=== PATIENT | female | born 1985 | race Caucasian/White ===

== ENCOUNTER 2021-08-05 16:14 | Emergency (ER) | payer SELFPAY ==
[2021-08-05 16:15] VITALS: BP 155/102; PULSE 74; RESP 16; TEMP 36.2; O2SAT 98; BMI 32.1
--- NOTE | 2021-08-05 17:37 | ED.RN ---
CALLED FOR PT AT 1707, PT NOT IN DEPT
== END 2021-08-05 17:45 | disposition left against medical advice (07) ==
LOC: ED 17:54
PROVIDERS: PCP Internal Medicine
DX: R10.9 Unspecified abdominal pain (principal); Z53.21 Procedure and treatment not carried out due to patient leaving prior to being seen by health care provider

== ENCOUNTER 2023-08-26 12:30 | Outpatient (RCR) | payer BC, SELFPAY ==
--- NOTE | 2023-08-12 13:58 | HP.SP.EVAL ---
Visit History Visit Info Date of Eval: 08/12/23 Visit: 1 Patient's Approved Number of Visits: 30 Insurance Date Limit: 05/17/24 Library Helper: ROGELIO Paez Attending Doctor: ARTURO Referring Doctor: ARTURO Reason for Referral: VOCAL CORD RX HERE Previous speech therapy: No Other Relevant Medical History/Diagnoses/Surgery: KHLOE OSMAN is a 38 year old female who presents to [facility] Speech Therapy following a dx of Vocal Cord Dysfunction. Pt has been seeing an personal injury attorney for about a year -- it has been determined that she is allergic to cats and dust mites. She moved into a new house about two years ago and the previous class 1 owner operator had cats and carpet. Pt stating that she is still finding cat hair in the carpet however they did have the carpets steam cleaned. Pt stating that at times she feels short of breath and it is like she is breathing through a straw. She does not have a hx of GERD. `She has been taking Jo and an Albuterol inhaler and they do not bring her relief. She states she has noticed increased heart rate and anxiousness with the Jo. Khloe stating she has stopped drinking coffee within the past year because she felt like she didn't have a good response to the caffeine. Pt reporting feeling brain fog during these episodes where she doesn't know what she is doing or losing her train of thought mid statement. Pt stating that she has taken Lion's Red supplement to help with brain fog. Pt stating that over the past two years she has noticed that her symptoms appear to exist between June to January/February where she may experience the SOB every day during this time period. She then notices that between the months of February and May, her symptoms seem to subside. This may be related to her allergies. She does confirm feelings of post nasal drip. Khloe stating that she is an sales executive insurance in sales for [employer] and she is on the phone for 10 hours a day. She notices that talking seems to make her symptoms worse and that exercising does not seem to affect her. She states that the symptoms do not seem to subside unless she sits and is quiet without talking. Khloe has not been to see a integrity consultant. Smoking Status: Never smoker Pain Is pain an issue with your current prescribed condition?: No Personal Preferred language: Yemeni Patient Allergies Allergies Allergies: Allergies No Known Allergies Allergy (Verified 08/05/21 16:17) Subjective Voice Medications Mediations: Jo, Ayan's Red, Vitamin D3, B complex with calcium, Magnesium glycinate Intubation Was the Client intubated: Yes If yes, list date, duration, and explanation: 2008 for a hysterectomy Intake Water (ounces): 36 Coffee (ounces): 0 Tea (ounces): 0 Soda (ounces): 0 Energy drinks (ounces): 0 Other (specify): Crystal Lite occasionally Alcoholic Beverage Intake Intake: Never Objective Voice Observational Assessment Maximum Phonation Time in seconds: 14.33 on average across three trials. S/Z Ratio: 1.6 Sustained /s/: 19 on average across three trials Sustained /z/: 11.66 on average across three trials Greater than 1:4 (indicates dysfunction): Yes Reference: Neuro-QoL instrument Radiation Oncology Patient Other Other Breathing Education: -: - Direct education was provided re: use of diaphragmatic breathing, body mechanics, and goal of implementing this type of breathing throughout her day. Khloe was observed to utilize clavicular breathing at rest and at the start of structured voice related tasks (e.g., sustained phonation). A handout was provided on diaphragmatic breathing. Encouraged Pt to read through the handout at home and stated she could try to implement independently or wait until returning to speech therapy for more direct instruction. - ST also provided a breath introduction to rescue breathing. ST providing example of rescue breathing and direct instruction when Pt attempted. Pt stating that she felt light headed afterwards. A handout was provided on rescue breathing. Encouraged Pt to read through the handout at home and stated she could try to implement independently or wait until returning to speech therapy for more direct instruction. Spirometry: -: - Khloe participated in spirometry at her personal injury attorney's office which was report WNL. See Patient chart for a copy of the data. Plan Plan Plan: Will recommend Pt for skilled outpatient speech therapy to address deficits in vocal function characterized by suspected vocal cord dysfunction. Pt would benefit from training in identifying instances of vocal abuse, providing vocal hygiene solutions, training in diaphragmatic breathing, relaxation techniques, and direct education re: vocal health. Without skilled speech therapy Pt is at risk for pulmonary distress in a variety of social situations. Recommendations Treatment Warranted: Yes Treatment Warranted: Voice Comment: - Participation in evaluation with a Garage Laborer with potential for Pulmonary Function Test to determine presence of VCD and corroborate Pt's symptoms. Progress Prognosis: Good Frequency Frequency: 1x/Week Duration: 6 Weeks Goals that are Established Determination:: Goals will be added/modified as deemed necessary and appropriate. Therapy will be discontinued when results of re-evaluation indicate therapy is no longer needed or lack of progress has been documented. Goal #1-5 Goal #1: Khloe will establish volitional control of respiration evidenced by utilization of diaphragmatic breathing for at least 5 min. in two opportunities in a 30 min. therapy session within 4 weeks independently. Goal #2: Khloe will establish volitional control of respiration evidenced by utilization of rescue breathing in 3 of 3 structured opportunities within 4 weeks independently. Goal #3: Khloe will complete a weekly log dictating instances of vocal cord dysfunction or moments of activities of not breathing including time of day, activity, and stress level on a scale of 1-5 with 1 being mild tension and 5 being complete airway closure. Education Patient has Indicated that the Following Identified Educational Needs: None The Patient has indicated that they have no educational or learning abilities that may effect their care.: Yes Patient Instruction Patient Education: Diagnosis and Treatment Plan Person Taught: Patient Teaching Method: Discussion, Demonstration and Handout Response to teaching: Return demonstration and Verbalize understanding
--- NOTE | 2023-12-22 16:01 | HP.SP.DC_ITS ---
ST Discharge Summary Discharged: Discharge: PILAR OSMAN is a 38 year old female who presented to [facility] on 08/12/23 following a dx of vocal cord dysfunction. Pt attended initial evaluation with goals created to target diaphragmatic breathing, rescue breathing, and keeping a voice log of her po tential vocal cord dysfunction events. After evaluation, Pt attended 1 of 4 scheduled visits and then after last appt follow up visits were not scheduled by Pt. Pt being discharged from speech therapy caseload on this date 12/22/23 d/t Pt absence in attending additional treatment visits. RECOMMENDATION: Also recommended Pt reach out to chicken sexer or PCP and request a referral to see a public weigher for pulmonary function testing or to an ENT to scope and view vocal cords for vocal cord dysfunction. Suspect anxiety may be contributing to symptoms. Thank you for allowing me to participate in the care of your patient. Will reevaluate at Pt?s request following script from physician.
== END 2023-08-26 19:00 | disposition home or self-care (01) ==
LOC: SP 12:30
PROVIDERS: PCP Internal Medicine; Referring Provider Nurse Practitioner; Visit Provider Nurse Practitioner
DX: J38.3 Other diseases of vocal cords (principal)
CPT/HCPCS: 92507; 92524

== ENCOUNTER 2024-07-07 12:31 | Emergency (ER) | payer BC, SELFPAY ==
[2024-07-07 12:33] VITALS: BP 120/70; PULSE 81; RESP 16; TEMP 36.4; O2SAT 98; BMI 31.1
[2024-07-07 13:02] LABS: Absolute Lymphocyte Count 0.84 X10^3/uL (0.83-4.51); Absolute Neutrophil Count 4.5 X10^3/uL (2.0-7.7); Basophil# 0.02 X10^3/uL; Basophil% 0.3 % (0-1); Eosinophil# 0.05 X10^3/uL; Eosinophils% 0.9 % (0-5); Hematocrit 42.5 % (37-47); Hemoglobin 14.4 g/dL (12.0-15.0); Lymphocyte # 0.84 X10^3/ul (0.83-4.51); Lymphocyte % 14.5 % (19-41); Mean Corp Hgb Conc 33.9 g/dL (32-36); Mean Corpuscular Hgb 30.6 pg (27.0-32.0); Mean Corpuscular Volume 90.2 fL (81-99); Mean Platelet Vol. 9.1 fl (6.2-12.0); Monocyte% 6.9 % (0-10); NRBC Flagged by Analyzer 0 % (0-5); Neutrophil # 4.45 X10^3/uL (2.7-7.7); Neutrophil % 77.1 % (47-70); Platelet Count 383 K/mm3 (150-450); RBC Distribution Width CV 11.9 % (11.6-14.6); RBC Distribution Width SD 39.1 fl (35.1-43.9); Red Blood Count 4.71 M/mm3 (4.2-5.4); White Blood Count 5.8 K/mm3 (4.4-11.0)
[2024-07-07 13:18] LABS: Internal QC Validated? YES +Cl - CLEAR BKGD; Pregnancy, Serum, hCG Quali. NEGATIVE Negative
[2024-07-07 13:24] LABS: ALB/GLOB Ratio 0.9 RATIO (0.9-2.4); AST(SGOT) 29 U/L (15-37); Alanine Aminotransfer ALT/SGPT 24 U/L (13-56); Albumin, Serum 4.3 g/dL (3.2-5.0); Alkaline Phosphatase 97 U/L (45-117); Anion Gap 8 (5-15); BUN 14 mg/dL (7-18); BUN/Creat Ratio 16.5 RATIO (10-20); Calcium,Total 9.9 mg/dL (8.5-10.1); Chloride 102 mmol/L (98-107); Creatinine, Serum 0.85 mg/dL (0.55-1.02); EST Glomerular Filtration Rate 80 mL/min (>60); Est Glom Filt Rate - Afr Amer 97 mL/min (>60); Estimated Creatinine Clearance 87.12 ml/min; Globulin 4.9 g/dL (2.2-4.2); Glucose 102 mg/dL (74-106); Potassium 3.3 mmol/L (3.5-5.1); Protein, Total 9.2 g/dL (6.4-8.2); Sodium Level 136 mmol/L (136-145)
[2024-07-07 16:32] VITALS: BP 102/62; PULSE 88; RESP 18; O2SAT 97
--- NOTE | 2024-07-07 17:20 | CT_ITS ---
PROCEDURE: ABDOMEN/PELVIS W IV CONT ONLY REASON FOR EXAM: , Vomiting, diarrhea. TECHNIQUE: Abdomen and pelvis CT with intravenous contrast. IV CONTRAST: 95 COMPARISON: None. FINDINGS: Lung bases: Clear Liver: Unremarkable. Gallbladder: Surgically absent gallbladder. Spleen: Unremarkable. Pancreas: Unremarkable. Adrenals: Unremarkable. Kidneys: Unremarkable. Bladder: Unremarkable. Reproductive Organs: Surgically absent uterus. Bowel: Fluid-filled loops of bowel. Normal caliber large and small bowel. Appendix: Normal. Lymph nodes: No suspicious lymph node enlargement. Vasculature: Major vascular structures are unremarkable. Peritoneum / Retroperitoneum: No ascites. No free air. Bones: Unremarkable. CT/Abdomen/Pelvis W IV Cont ONLY IMPRESSION: No acute abnormalities of the abdomen or pelvis. Fluid-filled loops of bowel which may represent diarrheal illness. One or more dose reduction techniques were used (e.g., Automated exposure contr ol, adjustment of the mA and/or kV according to patient size, use of iterative reconstruction technique). Reading Location: [place] [id number]
--- NOTE | 2024-07-07 17:27 | EDS_ITS ---
HPI HPI - GI History of Present Illness Chief Complaint: Abd Pain Narrative Narrative: 39-year-old female past medical history of remote cholecystectomy, has had hysterectomy and 2 C-sections as well presents with nausea, vomiting, diarrhea that she has had since yesterday. Happened after she ate lunch around 130. She immediately started having abdominal pain. She states that she vomited up her stomach contents and it had not been digested. She has vomited multiple times yesterday evening, and once today. No blood in her emesis. She is also having diarrhea as well. No fevers or chills. She denies any exacerbating or alleviating factors. [facility] Medical History FH: cholecystectomy Home Medications ?Medication ?Instructions ?Recorded ?Last Taken ?Type ondansetron 4 mg disintegrating 4 mg PO Q8H PRN PRN Na usea #15 tabs 07/07/24 Unknown Rx tablet Allergy/AdvReac Type Severity Reaction Status Date / Time No Known Allergies Allergy Verified 08/05/21 16:17 Surgical History Previous section H/O: hysterectomy Social History Smoking Status: Never smoker ROS ROS ED ROS Narrative Constitutional: No fever, no chills. HEENT: No sore throat. No neck pain. Cardiovascular: No chest pain. No palpitations. No pedal edema. Respiratory: No cough, no shortness of breath. Abdominal: Positive epigastric to lower abdominal pain. Multiple episodes of nausea and vomiting. No hematemesis. Positive diarrhea. Genitourinary: No dysuria. No hematuria. Musculoskeletal: No myalgias. No arthralgias. EXAM Physical Exam Narrative Exam Narrative: Afebrile. Vital signs noted. HEENT: Normocephalic. Atraumatic. PERRL, EOMI. Neck soft and supple. No point tenderness or step off. Cardiovascular: Regular rate and rhythm. No murmurs, rubs, or gallops appreciated. Respiratory: No tachypnea. Lungs clear to auscultation bilaterally. Gastrointestinal: Abdomen soft, positive diffuse tenderness to palpation concentrated in the epigastrium to bilateral lower quadrant with decreased bowel sounds. No rebound or guarding. Neurological: Awake. Alert. Nonfocal, nonlateralizing. Skin: No rash. Normal color. No pallor. Musculoskeletal: Ambulatory to bathroom in ED. Full range of motion ex tremities. Const Vital Signs: 07/07/24 12:33 07/07/24 16:32 07/07/24 18:00 Temperature 97.6 F L 98.8 F Temperature Source Temporal Oral Pulse Rate 81 88 98 Respiratory Rate 16 18 18 Blood Pressure 120/70 102/62 Blood Pressure Mean 86 75 Pulse Ox 98 97 97 Oxygen Delivery Method Room Air Room Air Room Air MDM MDM MDM Narrative Medical decision making narrative: Differential diagnosis includes but not limited to gastroenteritis versus partial small bowel obstruction versus colitis versus pancreatitis. I have low suspicion for ureterolithiasis because history and physical does not support this. Protocol labs were obtained and reviewed. She has normal white count of 5.8 with hemoglobin normal at 14.4, hematocrit 42.5, platelet count normal at 383. Potassium is slightly low at 3.3 which may be from her nausea and vomiting. BUN normal at 14 with creatinine 0.85, no dehydration. Serum is negative and it was obtained through protocol, but patient has had hysterectomy. LFTs grossly unremarkable. I do feel that she requires imaging. I have added a lipase to rule out pancreatitis as well and she was administered ondansetron. Lipase is low at 27 so I doubt pancreatitis. I reviewed her urinalysis and see no signs of infection which require antibiotic treatment. Her potassium was replaced orally. Repeat examination shows her slightly improved. I reviewed the radiology report of the CT of the abdomen and pelvis which showed fluid fill bowel loops consistent with diarrheal illness but no evidence of obstruction. At this point in time, I feel she can be discharged safely home with follow-up. I offered to write her Bentyl for her abdominal pain and cramping but she declined. Instead, she was written for Zofran to take every 8 hours as needed for her nausea. She was told to keep hydrated with plenty of oral fluids. Return instructions to the emergency department were reviewed. Disposition is discharged home in stable condition. History & Record Review Discussion w/independent historian: Patient Lab Data Attestation: I reviewed the patient's lab results. Labs: Laboratory Results - last 24 hr 07/07/24 07/07/24 12:45 17:21 WBC 5.8 RBC 4.71 Hgb 14.4 Hct 42.5 MCV 90.2 MCH 30.6 MCHC 33.9 RDW Std Deviation 39.1 RDW Coeff of Earline 11.9 Plt Count 383 MPV 9.1 Immature Gran % (Auto) 0.300 Neut % (Auto) 77.1 H Lymph % (Auto) 14.5 L Stark % (Auto) 6.9 Eos % (Auto) 0.9 Baso % (Auto) 0.3 Absolute Neuts (auto) 4.5 Absolute Lymphs (auto) 0.84 Nucleated RBC % 0 Sodium 136 Potassium 3.3 L Chloride 102 Carbon Dioxide 26.0 Anion Gap 8 BUN 14 Creatinine 0.85 Estim Creat Clear Calc 87.12 Est GFR (MDRD) Af Amer 97 Est GFR (MDRD) Non-Af 80 BUN/Creatinine Ratio 16.5 Glucose 102 Calcium 9.9 Total Bilirubin 0.50 AST 29 ALT 24 Alkaline Phosphatase 97 Total Protein 9.2 H Albumin 4.3 Globulin 4.9 H Albumin/Globulin Ratio 0.9 Lipase 27 L Serum , Qual NEGATIVE Urine Color Yellow Urine Clarity Sl. Cloudy Urine pH 6.0 Ur Specific Lignum 1.020 Urine Protein 30 H Urine Glucose (UA) Normal Urine Ketones 5 H Urine Occult Blood 10 H Urine Nitrite Negative Urine Bilirubin Negative Urine Urobilinogen Normal Ur Leukocyte Esterase 25 H Urine RBC 0-5 SEEN Urine WBC 0-5 SEEN Ur Squamous Epith Cells 0-5 SEEN Urine Bacteria 1+ Urine Mucus 2+ Radiography Diagnostic Testing: Clinical Impression(s) from Imaging Studies Abdomen/Pelvis CT 07/07/24 17:20 IMPRESSION: No acute abnormalities of the abdomen or pelvis. Fluid-filled loops of bowel which may represent diarrheal illness. One or more dose reduction techniques were used (e.g., Automated exposure control, adjustment of the mA and/or kV according to patient size, use of iterative reconstruction technique). Reading Location: [place] [id number] Discharge Plan Triage Chief Complaint: Abd Pain ED Provider: Oleg Latif Dx/Rx/DC Orders Clinical Impression: Nausea, vomiting, and diarrhea, Abdominal pain, Hypokalemia Instructions: ED Abdominal Pain Unkn Cause Fem, ED Diet Vomiting Diarrhea, ED Hypokalemia, ED Gastroenteritis, Viral (Adult) Prescriptions: New ondansetron 4 mg tablet,disintegrating 4 mg PO Q8H PRN PRN (Reason: Nausea) Qty: 15 0RF Primary Care Provider: ELVIRA LIM Referrals: Jack Martin MD [Non-Staff] - 1 Week if not improving Activity Restrictions/Additional Instructions: Follow-up with your primary care provider in the next week if not improving. Return with increased pain, fever, new or worsening symptoms. Print Language: Yoruba Disposition Disposition: Home, Self Care
[2024-07-07] MEDS: Ondansetron 4 MG/2 ML Vial IV (17:30)
[2024-07-07 17:48] LABS: Lipase 27 U/L (73-393)
[2024-07-07 17:52] LABS: Color, Urine Yellow (Yellow); Glucose, Dipstick Normal (Normal); Ketone-Dipstick 5 mg/dl (Negative); Leukocyte Esterase-Dipstick 25 /ul (Negative); Nitrite-Dipstick Negative (Negative); Occult Blood-Urine 10 /ul (Negative); Protein-Dipstick 30 mg/dl (Negative); Urine Bilirubin Dipstick Negative (Negative); Urine Clarity Sl. Cloudy (Clear); Urine Urobilinogen Normal (Normal)
[2024-07-07 18:00] VITALS: PULSE 98; RESP 18; TEMP 37.1; O2SAT 97
[2024-07-07 18:21] LABS: Mucous, Urine 2+ /hpf (<or=2+); Squamous Epithelial Cells - UA 0-5 SEEN /hpf (5-10)
[2024-07-07 18:22] LABS: Bacteria 1+ /hpf (None Seen); Red Blood Cells-Urine 0-5 SEEN /hpf (0-5); White Blood Cells 0-5 SEEN /hpf (0-5)
[2024-07-07] MEDS: Potassium Chloride Oral Tablet 20 MEQ 40 MEQ PO (19:48)
== END 2024-07-07 19:51 | disposition home or self-care (01) ==
PROVIDERS: Emergency Provider Emergency Medicine; PCP Nurse Practitioner Adult Health; Visit Provider Emergency Medicine
DX: R11.2 Nausea with vomiting, unspecified (principal); R19.7 Diarrhea, unspecified; R10.9 Unspecified abdominal pain; E87.6 Hypokalemia
CPT/HCPCS: 74177; 80053; 81001; 83690; 84703; 85025; 96374; 96376; 99284; Q9967; A4216; J2405